=== PATIENT | male | born 1970 | race Caucasian/White ===

== ENCOUNTER 2021-12-11 13:10 | Emergency (ER) | payer MEDICAID, SELFPAY ==
--- NOTE | ~2021-12-11 | US_ITS ---
EXAMINATION: US VENOUS ULTRASOUND WITH DOPPLER LOWER EXTREMITY, RIGHT CLINICAL INFORMATION: Right leg pain and tingling COMPARISON: None TECHNIQUE: Ultrasound of the deep veins is performed from the hip to the calf with compression sonography and color and pulse Doppler assessment. Spectral analysis with color-flow imaging is performed. FINDINGS: There is normal venous compression and respiratory variation and augmented flow. The visualized common femoral vein, superficial femoral vein, profunda femoral vein, popliteal vein, and the trifurcation region shows no evidence of deep venous thrombosis. There is no significant popliteal fossa cyst. US/US venous duplex LE RT IMPRESSION: No DVT demonstrated in the right lower extremity.
--- NOTE | ~2021-12-11 | XR_ITS ---
EXAMINATION: XR TIBIA AND FIBULA, RIGHT CLINICAL INFORMATION: Hit lower leg. Pain. COMPARISON: Right knee radiographs 01/23/2016 TECHNIQUE: AP and lateral views of the right tibia and fibula were obtained. FINDINGS: No fracture or cortical disruption. Alignment at the knee and ankle maintained. The soft tissues are unremarkable. XR/XR tibia fibula RT 2V IMPRESSION: Normal right tibia and fibula.
[2021-12-11 13:24] VITALS: BP 105/79; PULSE 82; RESP 19; TEMP 36.6; O2SAT 100; BMI 29.9
--- NOTE | 2021-12-11 14:14 | ED_ITS ---
HPI - Extremity Injury (Lower) General Chief Complaint: Extremity Injury, Lower Stated Complaint: r leg inj Time Seen by Provider: 12/11/21 14:03 Source: patient Mode of arrival: ambulatory Limitations: no limitations History of Present Illness HPI Narrative: Patient presents to the emergency department for evaluation of right lower extremity pain. He reports 3 days ago that he struck his chin on to tile while attempting to get in to his hot tub. He had initial pain and swelling just below his knee which has improved some. Over the past couple of days he has noticed some mild redness along the medial calf with increased pain, swelling, and tingling. Pain is made worse with weight-bearing. Denies ever injuring this leg in the past. Denies any personal history of DVT/PE, cancer, anticoagulation usage, known coagulation disorders, recent immobilization/surgery/extended travel. He is a cigarette smoker. Related Data Previous Rx's Medication Instructions Recorded doxycycline hyclate 100 mg tablet 100 mg PO BID 7 Days #14 tab 12/11/21 Allergies Allergy/AdvReac Type Severity Reaction Status Date / Time Penicillins [PENICILLINS] Allergy Severe ANAPHYLAXIS Unverified 05/01/20 14:54 tomato [TOMATO] Allergy Severe ANAPHYLAXIS Unverified 05/01/20 14:54 penicillin V Allergy Unknown Verified 02/18/16 00:00 FRUIT Allergy Severe ANAPHYLAXIS Uncoded 05/01/20 14:54 Review of Systems Review of Systems: Constitutional: No weight loss, fever, chills, weakness or fatigue. Skin: No rash or itching. Cardiovascular: No chest pain, chest pressure or chest discomfort. No palpitations or pedal edema. Respiratory: No shortness of breath, cough or sputum production. Gastrointestinal: No nausea, vomiting or diarrhea. No abdominal pain Genitourinary: No burning micturition. No urinary frequency or incontinence. Musculoskeletal: Positive right lower extremity pain Psychiatric: No depression or anxiety. Yes all other systems are reviewed and are negative PMFSH Past Medical History Attestation statement: The following information was validated with the patient. Source: old records reviewed Medical History Anxiety Depression High cholesterol Social History Social History Advance Directives: No Advance Directives Information Provided: No Physical Exam Vital Signs: Vital Signs: Last Vital Signs Temp 98 F 12/11/21 13:24 Pulse 82 12/11/21 13:24 Resp 19 12/11/21 13:24 BP 105/79 12/11/21 13:24 Pulse Ox 100 12/11/21 13:24 BMI result Body Mass Index 29.9 Vital signs have been reviewed as normal and appeared to be correct. Blood pressure normal.? Heart rate normal.? Respiration rate normal. Temperature normal.? Oxygen saturation normal. Appearance: Alert.?Oriented to person, place and time. No acute distress.?Normal affect. Eyes: Pupils equal, round and reactive to light.? ENT: Pharynx normal.?? Neck: Normal inspection.? Neck supple.?? CVS: Heart sounds normal. Normal heart rate and rhythm.? Pulses normal.?? Respiratory: No respiratory distress.? Lung sounds clear to auscultation bilaterally?? Abdomen: Soft and non-tender. ? Skin: Skin warm and dry.? Normal skin color.? Extremities: Right lower extremity with firm palpable lump to anterior leg, just inferior to me. Right medial calf with mild erythema, appears to be streaking, no warmth, no palpable cord, has mild tenderness with palpation and non-pittin edema of the calf. No lower extremity edema.? No calf ttp? Neuro: Moves all extremities spontaneously. Sensation intact bilaterally. CN II- XII intact. No focal neuro deficits. Ambulates with normal steady gait. Course Course Course Narrative: Patient is a 51-year-old male with a past medical history of anxiety and hypercholesterolemia. Being evaluated for right lower extremity pain after an injury. Imaging studies obtained from triage include XR of the right tib-fib which reveals no acute fracture dislocation, and US duplex which reveals no DVT. Patient expressing that the pain he is currently seen see is consistent to a prior episode of cellulitis which she reports rapidly progressed over a few days requiring IV antibiotics. Discussed all findings with patient. Plan of care to treat at this time for potential early cellulitis, advise reasons return back to the emergency department, advised to follow-up with primary care provider within 1 week. All questions were answered and patient was discharged home in stable condition. MDM - Extremity Injury (Lower) Medical Records Attestation: I reviewed the patient's medical records. Imaging Data XR tib/fib: Radiologist's impression: FINDINGS: No fracture or cortical disruption. Alignment at the knee and ankle maintained. The soft tissues are unremarkable.? XR/XR tibia fibula RT 2V IMPRESSION: Normal right tibia and fibula. RLE US: Radiologist's impression: US/US venous duplex LE RT IMPRESSION: No DVT demonstrated in the right lower extremity. Discharge Plan Discharge Clinical Impression: Cellulitis Patient Disposition: Home, Self-Care Instructions: Cellulitis (ED) Additional Instructions: You have been given a new prescription for doxycycline, please take this course entirely as prescribed. Contact your primary care provider to schedule a follow-up visit within 1 week. Return to the emergency department any new or worsening symptoms or concerns Prescriptions: New doxycycline hyclate 100 mg tablet 100 mg PO BID 7 Days Qty: 14 0RF Interventions: ED Discharge Assessment Last Done: 12/11/21 15:33 Discharge Date/Time: 12/11/21 15:36
== END 2021-12-11 15:36 | disposition home or self-care (01) ==
PROVIDERS: Emergency Provider Internal Medicine; PCP Family Medicine
DX: L03.115 Cellulitis of right lower limb (principal); R60.0 Localized edema; Z79.899 Other long term (current) drug therapy
CPT/HCPCS: 73590; 93971; 99283; 99284

== ENCOUNTER 2022-10-06 10:55 | Emergency (ER) | payer MEDICARE, MEDICAID, SELFPAY ==
--- NOTE | ~2022-10-06 | MR_ITS ---
EXAMINATION: MR BRAIN WITHOUT CONTRAST CLINICAL INFORMATION: Vertigo and dizziness reported on head CT from 10/06/2022. COMPARISON: Head CT dated 10/06/2022. TECHNIQUE: Multiplanar, multisequence imaging of the brain was performed without contrast. FINDINGS: No diffusion abnormalities are identified to suggest an acute or subacute infarct. The ventricles are normal in size. No mass effect or midline shift is seen. No brain parenchymal signal abnormality is noted. No extra-axial fluid collections are seen. The brainstem and cerebellum are normal. The gradient refocused acquisition is normal. The craniovertebral junction, marrow signal, and midline structures are normal. The major intracranial flow voids at the level of the [place] are preserved. The dural venous sinus flow voids are maintained. The mastoid air cells are well aerated. Mild ethmoid sinus mucosal thickening noted. MR/MR head/brain wo con IMPRESSION: No acute intracranial process. Normal MRI of the brain.
--- NOTE | ~2022-10-06 | CT_ITS ---
EXAMINATION: CT HEAD WITHOUT CONTRAST CLINICAL INFORMATION: Dizziness and vertigo COMPARISON: None TECHNIQUE: Contiguous axial imaging was performed from the skull base to vertex without intravenous administration of contrast. This CT examination was performed using dose optimization techniques as appropriate, variously including the following: *Automated exposure control *Adjustment of mA and/or kV according to patient size (this includes techniques or standardized protocols for targeted exams where dose is matched to indication/reason for exam; i.e. extremities or head) *Use of iterative reconstruction technique DLP: 727 mGy-cm FINDINGS: No intra or extra-axial fluid collection or hemorrhage, mass or mass effect. Sulci normal. There are small punctate calcifications in the right basal ganglia. Calvarium is intact. CT/CT head/brain wo IV con IMPRESSION: No acute intracranial pathology.
--- NOTE | ~2022-10-06 | XR_ITS ---
EXAMINATION: XR CHEST CLINICAL INFORMATION: Dizziness COMPARISON: None TECHNIQUE: Frontal view of the chest was obtained. FINDINGS: No significant abnormality is noted involving the heart, lungs, mediastinum, bony thorax or soft tissues. XR/XR chest 1V IMPRESSION: Unremarkable examination.
[2022-10-06 11:09] VITALS: BP 141/87; PULSE 77; RESP 16; TEMP 36.8; O2SAT 98; BMI 26.4
--- NOTE | 2022-10-06 11:22 | PC.NURSE ---
52 y/o M pw dizziness since tuesday morning, initially resolved then returned and remained intermittent over past few days until today when symptoms became constant and worsened. pt c/o room spinning, Neuros intact, VSS. Md ambrosio made aware of patient, no new orders at this time. pt in gown, on monitor, awaiting MD franklin
--- OUTSIDE RECORDS SUMMARY | 2022-10-06 11:24 | XMS_ITS | Continuity of Care Document ---
:1970 Author Organization [facility] Address [address] [place] [address]- Care Team Providers Name Role Phone Cristy Owusu MD Primary Care Physician Encounter [facility] Date(s): 04/28/21 [facility] [address] [place] [id number] [place] Allergies, Adverse Reactions, Alerts Substance Reaction Severity Status penicillin Difficulty breathing Active Bee Stings DIFF BREATHING Active Fruit ALL FRUIT Active Difficulty breathing Immunizations Given and Recorded Vaccine Date Status Refusal Reason tetanus/diphtheria/pertussis, acel(Tdap) 12/15/15 Given influenza virus vaccine, inactivated1 06/07/14 Given influ virus vac, H1N1, inactive(oldterm)2 04/26/13 Given tetanus-diphtheria toxoids (Td)3 07/15/05 Given 1Result Comment: [06/07/2014] DECLINED FLU [id number] Note: DECLINES FLU SHOT3 Admin Note: per pt. Medications acetaminophen-oxyCODONE 325 mg-5 mg oral tablet 1, tablet, By Mouth, 3 times a day, Elbow pain M25.521 CONTROLLED SUB AGREEMENT MAPat checked fill on or after 05/12/2021, # 84 tablet, Refills 0, Tot. Refills 0, Maintenance, 05/05/21 9:25:00 EDT, Route to Pharmacy Electronically, [facility]... Start Date: 05/05/21 Stop Date: 06/02/21 Status: Orderedatorvastatin 40 mg oral tablet 1 tablet = 40 mg, By Mouth, Daily, # 30 tablet, 5 Refills, Maintenance, 04/27/21 15:07:00 EDT, Tablet, [facility], 185, cm, 03/18/21 7:59:00 EDT, Height, 93, kg, 07/19/19 8:00:00 EST, Dry Weight Start Date: 04/27/21 Status: Orderedcitalopram 20 mg oral tablet 20 mg, 1, tablet, By Mouth, Daily, # 30 tablet, Refills 5, Tot. Refills 5, Maintenance, 03/26/21 11:08:00 EDT, Route to Pharmacy Electronically, [facility] # [facility], 185, cm, 03/18/21 7:59:00 EDT, Height, 93, kg, 07/19/19 8:00:00 EST, Dry Weight Start Date: 03/26/21 Stop Date: 09/22/21 Status: Orderedibuprofen 600 mg oral tablet 600 mg, 1, tablet, By Mouth, 3 times a day with meals, PRN, # 90 tablet, Refills 5, Tot. Refills 5, Acute 03/17/22 10:10:00 EDT, Pain , Mild, 09/18/20 10:10:00 EST, Route to Pharmacy Electronically, [facility] # [facility], Partial fill upon patient reque... Start Date: 09/18/20 Stop Date: 03/17/22 Status: Orderedmeclizine 12.5 mg oral tablet 1 tablet = 12.5 mg, By Mouth, 3 times a day, PRN for dizziness, # 60 tablet, 0 Refills, Acute 06/18/21 8:31:00 EDT, 03/18/21 8:31:00 EDT, Tablet, [facility] # [facility], Partial fill upon patient request if the prescription is for a schedule II opioid Start Date: 03/18/21 Stop Date: 06/18/21 Status: OrderedPatient's Own Meds marijuana, Maintenance, 04/12/19 9:03:06 EDT Start Date: 04/12/19 Status: Ordered Problem List Condition Effective Dates Status Health Status Informant Bilateral inguinal hernia(Confirmed) Active Chronic depression(Confirmed) Active Cyst - pilonidal(Confirmed) Active Opiate analgesic use agreement 09/18/20 Active exists(Confirmed) Elbow pain, right(Confirmed) Active Hypercholesteremia(Confirmed) Active Insomnia, Unspecified(Confirmed) Active Lateral epicondylitis(Confirmed) Active Depression, major(Confirmed) Active Tobacco abuse(Confirmed) Active Hernia, umbilical(Confirmed) Active Social History Social History Type Response Smoking Status Former smoker, quit more alonso n 30 days ago; Other: 08/16/19 quit smoking; entered on: 01/18/20 Sex Medical Equipment Implanted Date:08/16/19 Target Site:Groin Left Description Quantity MRI Company Model LEFT GROIN 1 VENTRALIGHT Unknown ASHVIN: No Information Assigning Authority: FDA Implanted Date:08/16/19 Target Site:Groin Right Description Quantity MRI Company Model MESH VENTRALIGHT ECHO CIR 6 - BARD ([id number]) 1 Bard Unknown ASHVIN: No Information Assigning Authority: FDA Implanted Date:08/16/19 Target Site:[facility] Description Quantity MRI Company Model MESH VENTRALIGHT ECHO CIR 6 - BARD ([id number]) 1 Bard Unknown ASHVIN: No Information Assigning Authority: FDA
--- OUTSIDE RECORDS SUMMARY | 2022-10-06 11:24 | XMS_ITS | Continuity of Care Document ---
:1970 Author Organization [facility] Address [address] [place] [address]- Care Team Providers Name Role Phone Cristy Owusu MD Primary Care Physician Encounter [facility] Date(s): 03/31/20 - 04/07/20 [facility] [address] [place] [phone]- Attending Physician: Cristy Owusu MD Allergies, Adverse Reactions, Alerts Substance Reaction Severity Status penicillin Difficulty breathing Active Bee Stings DIFF BREATHING Active Fruit ALL FRUIT Active Difficulty breathing Immunizations Given and Recorded Vaccine Date Status Refusal Reason tetanus/diphtheria/pertussis, acel(Tdap) 12/15/15 Given influenza virus vaccine, inactivated1 06/07/14 Given influ virus vac, H1N1, inactive(oldterm)2 04/26/13 Given tetanus-diphtheria toxoids (Td)3 07/15/05 Given 1Result Comment: [06/07/2014] DECLINED FLU [id number] Note: DECLINES FLU SHOT3 Admin Note: per pt. Medications acetaminophen-oxyCODONE 325 mg-5 mg oral tablet 1, tablet, By Mouth, 3 times a day, Elbow pain M25.521 CONTROLLED SUB AGREEMENT MAPat checked fill on or after 03/26/2020, # 84 tablet, Refills 0, Tot. Refills 0, Maintenance, 03/25/20 21:47:00 EDT, Route to Pharmacy Electronically, [facility]... Start Date: 03/25/20 Stop Date: 04/22/20 Status: Orderedatorvastatin 40 mg oral tablet 1 tablet = 40 mg, By Mouth, Daily, # 30 tablet, 5 Refills, Maintenance, 03/27/20 11:50:00 EDT, Tablet, [facility] # [facility], 185, cm, 01/18/20 7:59:00 EDT, Height, 93, kg, 07/19/19 8:00:00 EST, Dry Weight Start Date: 03/27/20 Status: Orderedcitalopram 20 mg oral tablet 20 mg, 1, tablet, By Mouth, Daily, # 30 tablet, Refills 5, Tot. Refills 5, Maintenance, 03/31/20 11:08:00 EDT, Route to Pharmacy Electronically, [facility] # [facility], 185, cm, 03/31/20 10:50:00 EDT, Height, 93, kg, 07/19/19 8:00:00 EST, Dry Weight Start Date: 03/31/20 Stop Date: 09/27/20 Status: OrderedColace sodium 100 mg oral capsule 100 mg, 1, capsule, By Mouth, 2 times a day, PRN, with plenty of water, # 20 capsule, Refills 1, Tot. Refills 1, Maintenance, for constipation, 08/16/19 11:53:00 EST, Print Requisition Start Date: 08/16/19 Status: Orderedibuprofen 600 mg oral tablet 600 mg, 1, tablet, By Mouth, 3 times a day with meals, PRN, Refills 0, Maintenance, Pain , Mild, 08/16/19 11:44:00 EST Start Date: 08/16/19 Status: Orderedibuprofen 600 mg oral tablet 600 mg, 1, tablet, By Mouth, 4 times a day, # 120 tablet, Refills 1, Tot. Refills 1, Acute 10/01/20 11:58:00 EST, 08/31/19 11:57:00 EST, Route to Pharmacy Electronically, [facility] # 50, 185, cm, 08/31/19 11:41:00 EST, Height, 93, kg, 07/19/19 8:... Start Date: 08/31/19 Stop Date: 10/01/20 Status: OrderedPatient's Own Meds marijuana, Maintenance, 04/12/19 9:03:06 EDT Start Date: 04/12/19 Status: Ordered Problem List Condition Effective Dates Status Health Status Informant Bilateral inguinal hernia(Confirmed) Active Chronic depression(Confirmed) Active Cyst - pilonidal(Confirmed) Active Opiate analgesic use agreement 08/23/19 Active exists(Confirmed) Elbow pain, right(Confirmed) Active Hypercholesteremia(Confirmed) Active Insomnia, Unspecified(Confirmed) Active Lateral epicondylitis(Confirmed) Active Depression, major(Confirmed) Active Tobacco abuse(Confirmed) Active Hernia, umbilical(Confirmed) Active Vital Signs Most recent to oldest [Reference Range]: 1 Height 185 cm (03/31/20 10:50 AM) Weight 91.2 kg (03/31/20 10:50 AM) Oxygen Saturation [94-100 %] 97 % (03/31/20 10:50 AM) Pulse Rate [55-90 bpm] 67 bpm (03/31/20 10:50 AM) Body Mass Index [18.5-24.99] 26.65 *H* (03/31/20 10:50 AM) Blood Pressure [90-138/55-84 mm Hg] 120/72 mm Hg (03/31/20 10:50 AM) Temperature [96.8-100.4 DegF] 97.6 DegF (03/31/20 10:50 AM) Blood pressure sites Arm, left (03/31/20 10:50 AM) Temperature Route Temporal (03/31/20 10:50 AM) Social History Social History Type Response Smoking [...] MESH VENTRALIGHT ECHO CIR 6 - BARD ([id number]) 1 Bard Unknown ASHVIN: No Information Assigning Authority: FDA Implanted Date:08/16/19 Target Site:[facility] Description Quantity MRI Company Model MESH VENTRALIGHT ECHO CIR 6 - BARD ([id number]) 1 Bard Unknown ASHVIN: No Information Assigning Authority: FDA
--- OUTSIDE RECORDS SUMMARY | 2022-10-06 11:24 | XMS_ITS | Continuity of Care Document ---
:1970 Author Organization [facility] Address [address] [place] [address]- Care Team Providers Name Role Phone Cristy Owusu MD Primary Care Physician Encounter [facility] Date(s): 09/18/20 - 09/25/20 [facility] [address] [place] [id number]- Attending Physician: Cristy Owusu MD Allergies, Adverse Reactions, Alerts Substance Reaction Severity Status penicillin Difficulty breathing Active Fruit ALL FRUIT Active Difficulty breathing Bee Stings DIFF BREATHING Active Immunizations Given and Recorded Vaccine Date Status Refusal Reason tetanus/diphtheria/pertussis, acel(Tdap) 12/15/15 Given influenza virus vaccine, inactivated1 06/07/14 Given influ virus vac, H1N1, inactive(oldterm)2 04/26/13 Given tetanus-diphtheria toxoids (Td)3 07/15/05 Given 1Result Comment: [06/07/2014] DECLINED FLU [id number] Note: DECLINES FLU SHOT3 Admin Note: per pt. Medications acetaminophen-oxyCODONE 325 mg-5 mg oral tablet 1, tablet, By Mouth, 3 times a day, Elbow pain M25.521 CONTROLLED SUB AGREEMENT MAPat checked fill on or after 09/07/2020, # 84 tablet, Refills 0, Tot. Refills 0, Maintenance, 09/02/20 16:21:00 EST, Route to Pharmacy Electron[facility], [facility]... Start Date: 09/02/20 Stop Date: 09/30/20 Status: Orderedatorvastatin 40 mg oral tablet 1 tablet = 40 mg, By Mouth, Daily, # 30 tablet, 5 Refills, Maintenance, 09/18/20 10:08:00 EST, Tablet, [facility] # [facility], 185, cm, 09/18/20 9:54:00 EST, Height, 93, kg, 07/19/19 8:00:00 EST, Dry Weight Start Date: 09/18/20 Status: Orderedcitalopram 20 mg oral tablet 20 mg, 1, tablet, By Mouth, Daily, for 30 days, # 30 tablet, Refills 5, Tot. Refills 5, Hard Stop 09/27/20 11:08:00 EST, 03/31/20 11:08:00 EDT, Route to Pharmacy Electronically, [facility] # [facility], 185, cm, 03/31/20 10:50:00 EDT, Height, 93, kg, 12/0... Start Date: 03/31/20 Stop Date: 09/27/20 Status: Orderedcitalopram 20 mg oral tablet 20 mg, 1, tablet, By Mouth, Daily, # 30 tablet, Refills 5, Tot. Refills 5, Maintenance, 09/27/20 11:08:00 EST, Route to Pharmacy Electronically, [facility] # [facility], 185, cm, 09/18/20 9:54:00 EST, Height, 93, kg, 07/19/19 8:00:00 EST, Dry Weight Start Date: 09/27/20 Stop Date: 03/26/21 Status: Orderedibuprofen 600 mg oral tablet 600 mg, 1, tablet, By Mouth, 4 times a day, # 120 tablet, Refills 1, Tot. Refills 1, Acute 10/01/20 11:58:00 EST, 08/31/19 11:57:00 EST, Route to Pharmacy Electronically, [facility] # [facility], 185, cm, 08/31/19 11:41:00 EST, Height, 93, kg, 07/19/19 8:... Start Date: 08/31/19 Stop Date: 10/01/20 Status: Orderedibuprofen 600 mg oral tablet 600 mg, 1, tablet, By Mouth, 3 times a day with meals, PRN, # 90 tablet, Refills 5, Tot. Refills 5, Acute 03/17/22 10:10:00 EDT, Pain , Mild, 09/18/20 10:10:00 EST, Route to Pharmacy Electronically, [facility] # 50, Partial fill upon patient reque... Start Date: 09/18/20 Stop Date: 03/17/22 Status: OrderedPatient's Own Meds marijuana, Maintenance, 04/12/19 [...] oldest [Reference Range]: 1 Height 185 cm (09/18/20 9:54 AM) Weight 94.4 kg (09/18/20 9:54 AM) Oxygen Saturation [94-100 %] 98 % (09/18/20 9:54 AM) Pulse Rate [55-90 bpm] 71 bpm (09/18/20 9:54 AM) Body Mass Index [18.5-24.99] 27.58 *H* (09/18/20 9:54 AM) Blood Pressure [90-138/55-84 mm Hg] 128/84 mm Hg (09/18/20 9:54 AM) Blood pressure sites Arm, left (09/18/20 9:54 AM) Weight Obtained Via Standing scale (09/18/20 9:54 AM) Social History Social History Type Response [...] MESH VENTRALIGHT ECHO CIR 6 - BARD ([id number]) 1 Bard Unknown ASHVIN: No Information Assigning Authority: FDA Implanted Date:08/16/19 Target Site:[facility] Description Quantity MRI Company Model MESH VENTRALIGHT ECHO CIR 6 - BARD ([id number]) 1 Bard Unknown ASHVIN: No Information Assigning Authority: FDA
--- OUTSIDE RECORDS SUMMARY | 2022-10-06 11:24 | XMS_ITS | Continuity of Care Document ---
:1970 Author Organization [facility] Address [address] [place] [address]- Care Team Providers Name Role Phone Cristy Owusu MD Primary Care Physician Encounter [facility] Date(s): 01/18/20 - 02/17/20 [facility] [address] [place] [address]- Attending Physician: Gissell Perry Admitting Physician: AdmtrGissell Referring Physician: Admtr, ArAddy Allergies, Adverse Reactions, Alerts Substance Reaction Severity Status penicillin Difficulty breathing Active Bee Stings DIFF BREATHING Active Fruit ALL FRUIT Active Difficulty breathing Immunizations Given and Recorded Vaccine Date Status Refusal Reason tetanus/diphtheria/pertussis, acel(Tdap) 12/15/15 Given influenza virus vaccine, inactivated1 06/07/14 Given influ virus vac, H1N1, inactive(oldterm)2 04/26/13 Given tetanus-diphtheria toxoids (Td)3 07/15/05 Given 1Result Comment: [06/07/2014] DECLINED FLU [id number] Note: DECLINES FLU SHOT3 Admin Note: per pt. Medications acetaminophen-oxyCODONE 325 mg-5 mg oral tablet 1, tablet, By Mouth, 3 times a day, Elbow pain M25.521 CONTROLLED SUB AGREEMENT MAPat checked fill on or after 02/27/2020, # 84 tablet, Refills 0, Tot. Refills 0, Maintenance, 02/06/20 12:30:00 EDT, Route to Pharmacy Electronically, [facility]... Start Date: 02/06/20 Stop Date: 03/05/20 Status: Orderedacetaminophen-oxyCODONE 325 mg-5 mg oral tablet 1, tablet, By Mouth, 3 times a day, Elbow pain M25.521 CONTROLLED SUB AGREEMENT MAPat checked fill on or after 01/30/20 for 28 days, # 84 tablet, Refills 0, Tot. Refills 0, Hard Stop, 02/22/20 11:22:00 EDT, 01/25/20 11:22:00 EDT, Do Not Route, Tab... Start Date: 01/25/20 Stop Date: 02/22/20 Status: Orderedacetaminophen-oxyCODONE 325 mg-5 mg oral tablet 1, tablet, By Mouth, 3 times a day, Elbow pain M25.521 CONTROLLED SUB AGREEMENT MAPat checked fill on or after 01/30/20 for 28 days, # 84 tablet, Refills 0, Tot. Refills 0, Hard Stop, 02/22/20 15:47:00 EDT, 01/25/20 15:47:00 EDT, Route to Pharmacy... Start Date: 01/25/20 Stop Date: 02/22/20 Status: Orderedatorvastatin 40 mg oral tablet 1 tablet = 40 mg, By Mouth, Daily, # 30 tablet, 5 Refills, Maintenance, 08/06/19 13:25:00 EST, Tablet, [facility], 185, cm, 07/19/19 8:00:00 EST, Height, 93, kg, 07/19/19 8:00:00 EST, Dry Weight Start Date: 08/06/19 Status: OrderedColace sodium 100 mg oral capsule [...] 08/31/19 11:57:00 EST, Route to Pharmacy Electronically, [facility], 185, cm, 08/31/19 11:41:00 EST, Height, 93, kg, 07/19/19 8:... Start Date: 08/31/19 Stop Date: 10/01/20 Status: OrderedPatient's Own Meds marijuana, Maintenance, 04/12/19 9:03:06 EDT Start Date: 04/12/19 Status: OrderedPriLOSEC OTC 20 mg oral delayed release tablet 1 tablet = 20 mg, By Mouth, Daily, # 90 tablet, 1 Refills, Maintenance, 08/31/19 11:56:00 EST, CR Tablet, [facility], 185, cm, 08/31/19 11:41:00 EST, Height, 93, kg, 07/19/19 8:00:00 EST, Dry Weight Start Date: 08/31/19 Status: Ordered Problem List Condition Effective Dates Status Health Status Informant Bilateral inguinal hernia(Confirmed) Active Chronic depression(Confirmed) Active Cyst - pilonidal(Confirmed) Active Opiate analgesic use agreement 08/23/19 Active exists(Confirmed) Elbow pain, right(Confirmed) Active Hypercholesteremia(Confirmed) Active Insomnia, Unspecified(Confirmed) Active Lateral epicondylitis(Confirmed) Active Tobacco abuse(Confirmed) Active Hernia, umbilical(Confirmed) Active [...] MESH VENTRALIGHT ECHO CIR 6 - BARD ([id number]) 1 Bard Unknown ASHVIN: No Information Assigning Authority: FDA Implanted Date:08/16/19 Target Site:[facility] Description Quantity MRI Company Model MESH VENTRALIGHT ECHO CIR 6 - BARD ([id number]) 1 Bard Unknown ASHVIN: No Information Assigning Authority: FDA
--- OUTSIDE RECORDS SUMMARY | 2022-10-06 11:24 | XMS_ITS | Continuity of Care Document ---
:1970 Author Organization [facility] Address [address] [phone]- Care Team Providers Name Role Phone Cristy Owusu MD Primary Care Physician Encounter [facility] Date(s): 08/17/21 - 09/16/21 [facility] [address] [place] [address]- [place] Allergies, Adverse Reactions, Alerts Substance Reaction Severity Status penicillin Difficulty breathing Active Bee Stings DIFF BREATHING Active Fruit ALL FRUIT Active Difficulty breathing Immunizations Given and Recorded Vaccine Date Status Refusal Reason tetanus/diphtheria/pertussis, acel(Tdap) 12/15/15 Given influenza virus vaccine, inactivated1 06/07/14 Given influ virus vac, H1N1, inactive(oldterm)2 04/26/13 Given tetanus-diphtheria toxoids (Td)3 07/15/05 Given 1Result Comment: [06/07/2014] DECLINED FLU [id number] Note: DECLINES FLU SHOT3 Admin Note: per pt. Medications acetaminophen-oxyCODONE 325 mg-5 mg oral tablet 1, tablet, By Mouth, 3 times a day, Elbow pain M25.521 CONTROLLED SUB AGREEMENT MAPat checked fill on or after 08/31/21, # 84 tablet, Refills 0, Tot. Refills 0, Maintenance, 08/26/21 10:20:00 EST, Routeto Pharmacy Electronically, [facility] #... Start Date: 08/26/21 Stop Date: 09/23/21 Status: Orderedatorvastatin 40 mg oral tablet 1 tablet = 40 mg, By Mouth, Daily, # 30 tablet, 5 Refills, Maintenance, 04/27/21 15:07:00 EDT, Tablet, [facility] # 50, 185, cm, 03/18/21 7:59:00 EDT, Height, 93, kg, 07/19/19 8:00:00 EST, Dry Weight Start Date: 04/27/21 Status: Orderedcitalopram 20 mg oral tablet 20 mg, 1, tablet, By Mouth, Daily, # 30 tablet, Refills 5, Tot. Refills 5, Maintenance, 03/26/21 11:08:00 EDT, Route to Pharmacy Electronically, [facility] # [facility], 185, cm, 03/18/21 [...] 09/18/20 10:10:00 EST, Route to Pharmacy Electronically, [facility] # [facility], Partial fill upon patient [...] MESH VENTRALIGHT ECHO CIR 6 - BARD ([id number]) 1 Bard Unknown ASHVIN: No Information Assigning Authority: FDA Implanted Date:08/16/19 Target Site:[facility] Description Quantity MRI Company Model MESH VENTRALIGHT ECHO CIR 6 - BARD ([id number]) 1 Bard Unknown ASHVIN: No Information Assigning Authority: FDA
--- OUTSIDE RECORDS SUMMARY | 2022-10-06 11:24 | XMS_ITS | Continuity of Care Document ---
:1970 Author Organization [facility] Address [address] [place] [address]- Care Team Providers Name Role Phone Cristy Owusu MD Primary Care Physician Encounter [facility] Date(s): 03/18/21 - 03/25/21 [facility] [address] [place] [address]- Attending Physician: Cristy Owusu MD Allergies, Adverse [...] 07/15/05 Given 1Result Comment: [06/07/2014] DECLINED FLU [id number] Note: DECLINES FLU SHOT3 Admin Note: per pt. Medications acetaminophen-oxyCODONE 325 mg-5 mg oral tablet 1, tablet, By Mouth, 3 times a day, Elbow pain M25.521 CONTROLLED SUB AGREEMENT MAPat checked fill on 03/19/2021 fill on or after 02/20/2021, # 84 tablet, Refills 0, Tot. Refills 0, Maintenance, 03/17/21 21:54:00 EDT, Route to Pharmacy Electronically... Start Date: 03/17/21 Stop Date: 04/14/21 Status: Orderedatorvastatin 40 mg oral tablet 1 [...] 03/26/21 11:08:00 EDT, Route to Pharmacy Electronically, [facility] # [facility], 185, cm, 03/18/21 [...] 09/18/20 10:10:00 EST, Route to Pharmacy Electronically, [facility] # 50, Partial fill upon patient reque... Start Date: 09/18/20 Stop Date: 03/17/22 Status: Orderedmeclizine 12.5 mg oral tablet 1 tablet = 12.5 mg, By Mouth, 3 times a day, PRN for dizziness, # 60 tablet, 0 Refills, Acute 06/18/21 8:31:00 EDT, 03/18/21 8:31:00 EDT, Tablet, [facility] # 50, Partial fill upon [...] oldest [Reference Range]: 1 Height 185 cm (03/18/21 7:59 AM) Weight 92.1 kg (03/18/21 7:59 AM) Oxygen Saturation [94-100 %] 98 % (03/18/21 7:59 AM) Pulse Rate [55-90 bpm] 61 bpm (03/18/21 7:59 AM) Body Mass Index [18.5-24.99] 26.91 *H* (03/18/21 7:59 AM) Blood Pressure [90-138/55-84 mm Hg] 116/68 mm Hg (03/18/21 7:59 AM) Blood pressure sites Arm, left (03/18/21 7:59 AM) Weight Obtained Via Standing scale (03/18/21 7:59 AM) Social History Social History Type Response [...] MESH VENTRALIGHT ECHO CIR 6 - BARD ([id number]) 1 Bard Unknown ASHVIN: No Information Assigning Authority: FDA Implanted Date:08/16/19 Target Site:[facility] Description Quantity MRI Company Model MESH VENTRALIGHT ECHO CIR 6 - BARD ([id number]) 1 Bard Unknown ASHVIN: No Information Assigning Authority: FDA
--- OUTSIDE RECORDS SUMMARY | 2022-10-06 11:24 | XMS_ITS | Continuity of Care Document ---
:1970 Author Organization [facility] Address [address] [place] [address]- Care Team Providers Name Role Phone Cristy Owusu MD Primary Care Physician Encounter [facility] Date(s): 04/15/21 - 05/15/[address] [facility] [address] [place] [address] [place] Allergies, Adverse Reactions, Alerts Substance Reaction Severity Status penicillin Difficulty breathing Active Bee Stings DIFF BREATHING Active Fruit ALL FRUIT Active Difficulty breathing Immunizations Given and Recorded Vaccine Date Status Refusal Reason tetanus/diphtheria/pertussis, acel(Tdap) 12/15/15 Given influenza virus vaccine, inactivated1 06/07/14 Given influ virus vac, H1N1, inactive(oldterm)2 04/26/13 Given tetanus-diphtheria toxoids (Td)3 07/15/05 Given 1Result Comment: [06/07/2014] DECLINED FLU [id number] Note: DECLINES FLU SHOT3 Admin Note: per [...] 5 Refills, Maintenance, 04/27/21 15:07:00 EDT, Tablet, [facility] # [facility], 185, cm, 03/18/21 7:59:00 EDT, Height, 93, kg, 07/19/19 8:00:00 EST, Dry Weight Start Date: 04/27/21 Status: Orderedcitalopram 20 mg oral tablet 20 mg, 1, tablet, By Mouth, Daily, # 30 tablet, Refills 5, Tot. Refills 5, Maintenance, 03/26/21 11:08:00 EDT, Route to Pharmacy Electronically, [facility] # [facility], 185, cm, 03/18/21 [...] 09/18/20 10:10:00 EST, Route to Pharmacy Electronically, [facility] # [facility], Partial fill upon patient reque... Start Date: 09/18/20 Stop Date: 03/17/22 Status: Orderedmeclizine 12.5 mg oral tablet 1 tablet = 12.5 mg, By Mouth, 3 times a day, PRN for dizziness, # 60 tablet, 0 Refills, Acute 06/18/21 8:31:00 EDT, 03/18/21 8:31:00 EDT, Tablet, [facility] # 50, Partial fill upon [...] MESH VENTRALIGHT ECHO CIR 6 - BARD ([id number]) 1 Bard Unknown ASHVIN: No Information Assigning Authority: FDA Implanted Date:08/16/19 Target Site:[facility] Description Quantity MRI Company Model MESH VENTRALIGHT ECHO CIR 6 - BARD ([id number]) 1 Bard Unknown ASHVIN: No Information Assigning Authority: FDA
--- OUTSIDE RECORDS SUMMARY | 2022-10-06 11:24 | XMS_ITS | Continuity of Care Document ---
:1970 Author Organization [facility] Address [address] [place] [address]- Care Team Providers Name Role Phone Francoise MACHADO, Cristy Reynolds Primary Care Physician Encounter [facility] Date(s): 08/16/19 - 08/16/[address] [address]- [facility] Discharge Disposition: A-D/C Home Attending Physician: Frederic Marcelo MD Admitting Physician: Fredeirc Marcelo MD Referring Physician: Frederic Marcelo MD Allergies, Adverse Reactions, Alerts Substance Reaction Severity Status penicillin Difficulty breathing Active Bee Stings DIFF BREATHING Active Fruit ALL FRUIT Active Difficulty breathing Immunizations Given and Recorded Vaccine Date Status Refusal Reason tetanus/diphtheria/pertussis, acel(Tdap) 12/15/15 Given influenza virus vaccine, inactivated1 06/07/14 Given influ virus vac, H1N1, inactive(oldterm)2 04/26/13 Given tetanus-diphtheria toxoids (Td)3 07/15/05 Given 1Result Comment: [06/07/2014] DECLINED FLU [id number] Note: DECLINES FLU SHOT3 Admin Note: per pt. Medications atorvastatin 40 mg oral tablet 1 tablet = [...] 08/16/19 11:44:00 EST Start Date: 08/16/19 Status: OrderedPatient's Own Meds marijuana, Maintenance, 04/12/19 9:03:06 EDT Start Date: 04/12/19 Status: OrderedPercocet-5/325 325 mg-5 mg oral tablet 1, tablet, By Mouth, Every 4 hours, PRN, # 12 tablet, Refills 0, Tot. Refills 0, Maintenance, as needed for pain, 08/16/19 11:52:00 EST, Print Requisition, Tablet, Partial fill upon patient request Start Date: 08/16/19 Status: OrderedPercocet-5/325 325 mg-5 mg oral tablet 1, tablet, By Mouth, 3 times a day, Elbow pain M25.521 MassPat checked DO NOT REFILL UNTIL 08/15/2019,# 84 tablet, Refills 0, Tot. Refills 0, Maintenance, 08/01/19 14:01:00 EST, Route to Pharmacy Electronically, [facility] # [facility] 185, cm, 07/19/19... Start Date: 08/01/19 Stop Date: 08/29/19 Status: Ordered Problem List Condition Effective Dates Status Health Status Informant Bilateral inguinal hernia(Confirmed) Active Chronic depression(Confirmed) Active Cyst - pilonidal(Confirmed) Active Opiate analgesic use agreement 06/26/18 Active exists(Confirmed) Elbow pain, right(Confirmed) Active Hypercholesteremia(Confirmed) Active Insomnia, Unspecified(Confirmed) Active Tobacco abuse(Confirmed) Active Hernia, umbilical(Confirmed) Active Vital Signs Most recent to oldest 1 2 3 [Reference Range]: Oxygen Saturation [94-100 %] 99 % 100 % 98 % (08/16/19 1:45 PM) (08/16/19 1:15 PM) (08/16/19 1:00 P M) Pulse Rate [55-90 bpm] 60 bpm (08/16/19 8:03 AM) Blood Pressure [90-138/55-84 mm 124/84 mm Hg 130/71 mm Hg 129/77 mm Hg Hg] (08/16/19 1:15 PM) (08/16/19 1:00 PM) (08/16/19 12:45 PM) Respiratory Rate [16-30 br/min] 14 br/min 14 br/min 8 br/min *L* *L* *L* (08/16/19 1:15 PM) (08/16/19 1:00 PM) (08/16/19 12:45 PM) Temperature [96.8-100.4 DegF] 98.3 DegF 97.3 DegF 98 .1 DegF (08/16/19 1:15 PM) (08/16/19 11:45 AM) (08/16/19 8:03 AM) Liters per Minute 2 L/min 2 L/min 5 L/min (08/16/19 12:45 PM) (08/16/19 12:30 PM) (08/16/19 12:1 5 PM) Mode of Delivery (Oxygen) Room air Room air Nasal cannula (08/16/19 1:45 PM) (08/16/19 1:00 PM) (08/16/19 12:45 PM) Blood pressure sites Arm, right (08/16/19 8:03 AM) Temperature Route Temporal Temporal Temporal (08/16/19 1:15 PM) (08/16/19 11:45 AM) (08/16/19 8:03 AM) Social History Social History Type Response Smoking Status Former smoker, quit more alonso n 30 days ago entered on: 07/10/18 Sex Medical Equipment Implanted Date:08/16/19 Target Site:Groin Left Description Quantity MRI Company Model LEFT GROIN 1 VENTRALIGHT Unknown ASHVIN: No Information Assigning Authority: FDA Implanted Date:08/16/19 Target Site:Groin Right Description Quantity MRI Company Model MESH VENTRALIGHT ECHO CIR 6 - BARD ([id number]) 1 Bard Unknown ASHVIN: No Information Assigning Authority: FDA Implanted Date:08/16/19 Target Site:[facility] Description Quantity MRI Company Model MESH VENTRALIGHT ECHO CIR 6 - BARD ([id number]) 1 Bard Unknown ASHVIN: No Information Assigning Authority: FDA
--- OUTSIDE RECORDS SUMMARY | 2022-10-06 11:24 | XMS_ITS | Continuity of Care Document ---
:1970 Author Organization [facility] Address [address] [place] [address]- Care Team Providers Name Role Phone Cristy Owusu MD Primary Care Physician [place] [facility] [place] 03/17/20 - 05/20/[address] [address]- [facility] Discharge Disposition: A-D/C Home Attending Physician: Mary Ann Lee Admitting Physician: Mary Ann Lee Referring Physician: Mary Ann Lee Allergies, Adverse Reactions, Alerts Substance Reaction Severity Status penicillin Difficulty breathing Active Fruit ALL FRUIT Active Difficulty breathing Bee Stings DIFF BREATHING Active Immunizations Given and Recorded Vaccine Date Status Refusal Reason tetanus/diphtheria/pertussis, acel(Tdap) 12/15/15 Given influenza virus vaccine, inactivated1 06/07/14 Given influ virus vac, H1N1, inactive(oldterm)2 04/26/13 Given tetanus-diphtheria toxoids (Td)3 07/15/05 Given 1Result Comment: [06/07/2014] DECLINED FLU [id number] Note: DECLINES FLU SHOT3 Admin Note: per pt. Medications acetaminophen-oxyCODONE 325 mg-5 mg oral tablet 1, tablet, By Mouth, 3 times a day, Elbow pain M25.521 CONTROLLED SUB AGREEMENT MAPat checked fill on or after 04/23/2020, # 84 tablet, Refills 0, Tot. Refills 0, Maintenance, 04/22/20 13:22:00 EDT, Route to Pharmacy Electronically, [facility] #... Start Date: 04/22/20 Stop Date: 05/20/20 Status: Orderedatorvastatin 40 mg oral tablet 1 tablet = 40 mg, By Mouth, Daily, # 30 tablet, 5 Refills, Maintenance, 03/27/20 11:50:00 EDT, Tablet, [facility] # [facility], 185, cm, 06/05/20 7:59:00 EDT, Height, 93, kg, 07/19/19 8:00:00 EST, Dry Weight Start Date: 03/27/20 Status: Orderedcitalopram 20 mg oral tablet 20 mg, 1, tablet, By Mouth, Daily, # 30 tablet, Refills 5, Tot. Refills 5, Maintenance, 03/31/20 11:08:00 EDT, Route to Pharmacy Electronically, [facility] # [facility], 185, cm, 03/31/20 10:50:00 [...] 08/31/19 11:57:00 EST, Route to Pharmacy Electronically, [facility] # [facility], 185, cm, 08/31/19 11:41:00 [...] MESH VENTRALIGHT ECHO CIR 6 - BARD ([id number]) 1 Bard Unknown ASHVIN: No Information Assigning Authority: FDA Implanted Date:08/16/19 Target Site:[facility] Description Quantity MRI Company Model MESH VENTRALIGHT ECHO CIR 6 - BARD ([id number]) 1 Bard Unknown ASHVIN: No Information Assigning Authority: FDA
--- OUTSIDE RECORDS SUMMARY | 2022-10-06 11:24 | XMS_ITS | Continuity of Care Document ---
:1970 Author Organization [email or web address] Address [address] [place] [address]- Care Team Providers Name Role Phone Cristy Owusu MD Primary Care Physician Encounter [facility] Date(s): 09/18/21 - 09/25/21 [facility] [address] [place] [address]- Attending Physician: Cristy Owusu MD Allergies, Adverse [...] 07/15/05 Given 1Result Comment: [06/07/2014] DECLINED FLU [id number] Note: DECLINES FLU SHOT3 Admin Note: per pt. Medications acetaminophen-oxyCODONE 325 mg-5 mg oral tablet 1, tablet, By Mouth, 3 times a day, Elbow pain M25.521 CONTROLLED SUB AGREEMENT MAPat checked fill on or after 09/28/21, # 84 tablet, Refills 0, Tot. Refills 0, Maintenance, 09/23/21 11:28:00 EST, Routeto Pharmacy Electronically, [facility] #... Start Date: 09/23/21 Stop Date: 10/21/21 Status: Orderedatorvastatin 40 mg oral tablet 1 tablet = 40 mg, By Mouth, Daily, # 90 tablet, 3 Refills, Maintenance, 09/18/21 8:06:00 EST, Tablet, [facility] # [facility], 185, cm, 09/18/21 7:42:00 EST, Height Start Date: 09/18/21 Status: Orderedcitalopram 20 mg oral tablet 20 mg, 1, tablet, By Mouth, Daily, # 30 tablet, Refills 5, Tot. Refills 5, Maintenance, 09/22/21 11:08:00 EST, Route to Pharmacy Electronically, [facility] # [facility], 185, cm, 09/18/21 7:42:00 EST, Height Start Date: 09/22/21 Stop Date: 03/21/22 Status: Orderedibuprofen 600 mg oral tablet 600 mg, 1, tablet, By Mouth, 3 times a day with meals, PRN, # 90 tablet, Refills 5, Tot. Refills 5, Maintenance, Pain , Mild, 03/17/22 10:10:00 EDT, Route to Pharmacy Electronically, [facility] # [facility], Partial fill upon patient request if the prescr... Start Date: 03/17/22 Status: OrderedPatient's Own Meds marijuana, [...] oldest [Reference Range]: 1 Height 185 cm (09/18/21 7:42 AM) Weight 92.1 kg (09/18/21 7:42 AM) Oxygen Saturation [94-100 %] 100 % (09/18/21 7:42 AM) Pulse Rate [55-90 bpm] 70 bpm (09/18/21 7:42 AM) Body Mass Index [18.5-24.99] 26.91 *H* (09/18/21 7:42 AM) Blood Pressure [90-138/55-84 mm Hg] 116/76 mm Hg (09/18/21 7:42 AM) Temperature [96.8-100.4 DegF] 98.4 DegF (09/18/21 7:42 AM) Liters per Minute 0 L/min (2/4/22 7:42 AM) Mode of Delivery (Oxygen) Room air (09/18/21 7:42 AM) Blood pressure sites Arm, left (09/18/21 7:42 AM) Temperature Route Temporal (09/18/21 7:42 AM) Weight Obtained Via Standing scale (09/18/21 7:42 AM) Social History Social History Type Response Tobacco Use: 4 or less cigarettes(le ss than 1/4 pack)/day in last 30 days. Sex Medical Equipment Implanted Date:08/16/19 Target Site:Groin Left Description Quantity MRI Company Model LEFT GROIN 1 VENTRALIGHT Unknown ASHVIN: No Information Assigning Authority: FDA Implanted Date:08/16/19 Target Site:Groin Right Description Quantity MRI Company Model MESH VENTRALIGHT ECHO CIR 6 - BARD ([id number]) 1 Bard Unknown ASHVIN: No Information Assigning Authority: FDA Implanted Date:08/16/19 Target Site:[facility] Description Quantity MRI Company Model MESH VENTRALIGHT ECHO CIR 6 - BARD ([id number]) 1 Bard Unknown ASHVIN: No Information Assigning Authority: FDA
--- OUTSIDE RECORDS SUMMARY | 2022-10-06 11:24 | XMS_ITS | Continuity of Care Document ---
:1970 Author Organization [facility] Address [address] [place] [address]- Care Team Providers Name Role Phone Cristy Owusu MD Primary Care Physician Encounter [facility] Date(s): 12/24/21 - 01/23/22 [facility] [address] [place] [address]- Attending Physician: Gissell Perry Admitting Physician: AdmtrGissell Referring Physician: Admtr, Ar8 Allergies, Adverse Reactions, Alerts Substance Reaction Severity Status penicillin Difficulty breathing Active Fruit ALL FRUIT Active Difficulty breathing Bee Stings DIFF BREATHING Active Immunizations Given and Recorded Vaccine Date Status Refusal Reason tetanus/diphtheria/pertussis, acel(Tdap) 12/15/15 Given influenza virus vaccine, inactivated1 06/07/14 Given influ virus vac, H1N1, inactive(oldterm)2 04/26/13 Given tetanus-diphtheria toxoids (Td)3 07/15/05 Given 1Result Comment: [06/07/2014] DECLINED FLU [id number] Note: DECLINES FLU SHOT3 Admin Note: per pt. Medications acetaminophen-oxyCODONE 325 mg-5 mg oral tablet 1, tablet, By Mouth, 3 times a day, Elbow pain M25.521 CONTROLLED SUB AGREEMENT MAPat checked fill on or after 01/14/22, # 84 tablet, Refills 0, Tot. Refills 0, Maintenance, 01/08/22 10:59:00 EDT, Route to Pharmacy Electronically, [facility]... Start Date: 01/08/22 Stop Date: 02/08/30 Status: Orderedatorvastatin 40 mg oral tablet 1 tablet = 40 mg, By Mouth, Daily, # 90 tablet, 3 Refills, Maintenance, 09/18/21 8:06:00 EST, Tablet, [facility] # [facility], 185, cm, 09/18/21 7:42:00 EST, Height Start Date: 09/18/21 Status: Orderedcitalopram 20 mg oral tablet 20 mg, 1, tablet, By Mouth, Daily, # 30 tablet, Refills 5, Tot. Refills 5, Maintenance, 09/22/21 11:08:00 EST, Route to Pharmacy Electronically, [facility] # [facility], 185, cm, 09/18/21 7:42:00 EST, Height Start Date: 09/22/21 Stop Date: 03/21/22 Status: Orderedibuprofen 600 mg oral tablet 600 mg, 1, tablet, By Mouth, 3 times a day with meals, PRN, # 90 tablet, Refills 5, Tot. Refills 5, Maintenance, Pain , Mild, 03/17/22 10:10:00 EDT, Route to Pharmacy Electronically, [facility] # [facility], Partial fill upon [...] Active Social History Social History Type Response Tobacco Use: 4 or less cigarettes(le ss than 1/4 pack)/day in last 30 days. Sex Medical Equipment Implanted Date:08/16/19 Target Site:Groin Left Description Quantity MRI Company Model LEFT GROIN 1 VENTRALIGHT Unknown ASHVIN: No Information Assigning Authority: FDA Implanted Date:08/16/19 Target Site:Groin Right Description Quantity MRI Company Model MESH VENTRALIGHT ECHO CIR 6 - BARD ([id number]) 1 Bard Unknown ASHVIN: No Information Assigning Authority: FDA Implanted Date:08/16/19 Target Site:[facility] Description Quantity MRI Company Model MESH VENTRALIGHT ECHO CIR 6 - BARD ([id number]) 1 Bard Unknown ASHVIN: No Information Assigning Authority: FDA
--- OUTSIDE RECORDS SUMMARY | 2022-10-06 11:24 | XMS_ITS | Continuity of Care Document ---
:1970 Author Organization [facility] Address [address] [place] [address]- Care Team Providers Name Role Phone Cristy Owusu MD Primary Care Physician Encounter [facility] Date(s): 08/23/19 - 08/30/19 [facility] [address] [place] [address]- Attending Physician: Cristy Owusu MD Allergies, Adverse [...] 07/15/05 Given 1Result Comment: [06/07/2014] DECLINED FLU [id number] Note: DECLINES FLU SHOT3 Admin Note: per [...] 08/01/19 14:01:00 EST, Route to Pharmacy Electronically, [facility] # [facility], 185, cm, 07/19/19... Start Date: 08/01/19 Stop Date: 08/29/19 Status: Ordered Problem List Condition Effective Dates Status Health Status Informant Bilateral inguinal hernia(Confirmed) Active Chronic depression(Confirmed) Active Cyst - pilonidal(Confirmed) Active Opiate analgesic use agreement 08/23/19 Active exists(Confirmed) Elbow pain, right(Confirmed) Active Hypercholesteremia(Confirmed) Active Insomnia, Unspecified(Confirmed) Active Lateral epicondylitis(Confirmed) Active Tobacco abuse(Confirmed) Active Hernia, umbilical(Confirmed) Active Procedures Procedure Date Related Diagnosis Body Site Status Bilateral inguinal hernia repair Completed Repair of umbilical hernia using surgical Completed mesh Vital Signs Most recent to oldest [Reference Range]: 1 Height 185 cm (08/23/19 8:35 AM) Weight 94 kg (08/23/19 8:35 AM) Oxygen Saturation [94-100 %] 99 % (08/23/19 8:35 AM) Pulse Rate [55-90 bpm] 72 bpm (08/23/19 8:35 AM) Body Mass Index [18.5-24.99] 27.47 *H* (08/23/19 8:35 AM) Blood Pressure [90-138/55-84 mm Hg] 110/66 mm Hg (08/23/19 8:35 AM) Temperature [96.8-100.4 DegF] 98.4 DegF (08/23/19 8:35 AM) Blood pressure sites Arm, left (08/23/19 8:35 AM) Temperature Route Temporal (08/23/19 8:35 AM) Weight Obtained Via Standing scale (08/23/19 8:35 AM) Social History Social History Type Response Tobacco Use: 4 or less cigarettes(le ss than 1/4 pack)/day in last 30 days. Sex Medical Equipment Implanted Date:08/16/19 Target Site:Groin Left Description Quantity MRI Company Model LEFT GROIN 1 VENTRALIGHT Unknown ASHVIN: No Information Assigning Authority: FDA Implanted Date:08/16/19 Target Site:Groin Right Description Quantity MRI Company Model MESH VENTRALIGHT ECHO CIR 6 - BARD ([id number]) 1 Bard Unknown ASHVIN: No Information Assigning Authority: FDA Implanted Date:08/16/19 Target Site:[facility] Description Quantity MRI Company Model MESH VENTRALIGHT ECHO CIR 6 - BARD ([id number]) 1 Bard Unknown ASHVIN: No Information Assigning Authority: FDA
--- OUTSIDE RECORDS SUMMARY | 2022-10-06 11:24 | XMS_ITS | Continuity of Care Document ---
:1970 Author Organization [facility] Address [address] [place] [address]- Care Team Providers Name Role Phone Cristy Owusu MD Primary Care Physician Encounter [facility] Date(s): 12/11/21 - 01/10/22 [facility] [address] [place] [address]- Attending Physician: Cristy Owusu MD Allergies, Adverse [...] 07/15/05 Given 1Result Comment: [06/07/2014] DECLINED FLU [id number] Note: DECLINES FLU SHOT3 Admin Note: per pt. Medications acetaminophen-oxyCODONE 325 mg-5 mg oral tablet 1, tablet, By Mouth, 3 times a day, Elbow pain M25.521 CONTROLLED SUB AGREEMENT MAPat checked fill on or after 01/14/22, # 84 tablet, Refills 0, Tot. Refills 0, Maintenance, 01/08/22 10:59:00 EDT, Route to Pharmacy Electronically, [facility] # [facility]... Start Date: 01/08/22 Stop Date: 02/08/30 Status: Orderedacetaminophen-oxyCODONE 325 mg-5 mg oral tablet 1, tablet, By Mouth, 3 times a day, Elbow pain M25.521 CONTROLLED SUB AGREEMENT MAPat checked fill on or after 12/18/21 for 28 days, # 84 tablet, Refills 0, Tot. Refills 0, Hard Stop, 01/11/22 9:53:00 EDT, 12/14/21 9:53:00 EDT, Route to Pharmacy [facility]... Start Date: 12/14/21 Stop Date: 01/11/22 Status: Orderedatorvastatin 40 mg oral tablet 1 [...] 09/22/21 11:08:00 EST, Route to Pharmacy Electronically, [facility] # [facility], 185, cm, 09/18/21 7:42:00 EST, Height Start Date: 09/22/21 Stop Date: 03/21/22 Status: Orderedibuprofen 600 mg oral tablet 600 mg, 1, tablet, By Mouth, 3 times a day with meals, PRN, # 90 tablet, Refills 5, Tot. Refills 5, Maintenance, Pain , Mild, 03/17/22 10:10:00 EDT, Route to Pharmacy Electronically, [facility] # [facility], Partial fill upon patient [...] MESH VENTRALIGHT ECHO CIR 6 - BARD ([id number]) 1 Bard Unknown ASHVIN: No Information Assigning Authority: FDA Implanted Date:08/16/19 Target Site:[facility] Description Quantity MRI Company Model MESH VENTRALIGHT ECHO CIR 6 - BARD ([id number]) 1 Bard Unknown ASHVIN: No Information Assigning Authority: FDA
--- OUTSIDE RECORDS SUMMARY | 2022-10-06 11:24 | XMS_ITS | Continuity of Care Document ---
:1970 Author Organization [facility] Address [address] [place] [address]- Care Team Providers Name Role Phone Cristy Owusu MD Primary Care Physician Encounter [facility] Date(s): 11/07/20 - 12/07/20 [facility] [address] [place] [address]- Allergies, Adverse Reactions, Alerts Substance Reaction Severity Status penicillin Difficulty breathing Active Bee Stings DIFF BREATHING Active Fruit ALL FRUIT Active Difficulty breathing Immunizations Given and Recorded Vaccine Date Status Refusal Reason tetanus/diphtheria/pertussis, acel(Tdap) 12/15/15 Given influenza virus vaccine, inactivated1 06/07/14 Given influ virus vac, H1N1, inactive(oldterm)2 04/26/13 Given tetanus-diphtheria toxoids (Td)3 07/15/05 Given 1Result Comment: [06/07/2014] DECLINED FLU [id number] Note: DECLINES FLU SHOT3 Admin Note: per pt. Medications acetaminophen-oxyCODONE 325 mg-5 mg oral tablet 1, tablet, By Mouth, 3 times a day, Elbow pain M25.521 CONTROLLED SUB AGREEMENT MAPat checked fill on or after 11/28/2020, # 84 tablet, Refills 0, Tot. Refills 0, Maintenance, 11/25/20 18:12:00 EDT, Route to Pharmacy Electronically, [facility]... Start Date: 11/25/20 Stop Date: 12/23/20 Status: Orderedatorvastatin 40 mg oral tablet 1 tablet = 40 mg, By Mouth, Daily, # 30 tablet, 5 Refills, Maintenance, 09/18/20 10:08:00 EST, Tablet, [facility] # [facility], 185, cm, 09/18/20 9:54:00 EST, Height, 93, kg, 07/19/19 8:00:00 EST, Dry Weight Start Date: 09/18/20 Status: Orderedcitalopram 20 mg oral tablet 20 mg, 1, tablet, By Mouth, Daily, # 30 tablet, Refills 5, Tot. Refills 5, Maintenance, 09/27/20 11:08:00 EST, Route to Pharmacy Electronically, [facility] [...] 09/18/20 10:10:00 EST, Route to Pharmacy Electronically, [facility] [...] MESH VENTRALIGHT ECHO CIR 6 - BARD ([id number]) 1 Bard Unknown ASHVIN: No Information Assigning Authority: FDA Implanted Date:08/16/19 Target Site:[facility] Description Quantity MRI Company Model MESH VENTRALIGHT ECHO CIR 6 - BARD ([id number]) 1 Bard Unknown ASHVIN: No Information Assigning Authority: FDA
--- OUTSIDE RECORDS SUMMARY | 2022-10-06 11:24 | XMS_ITS | Continuity of Care Document ---
:1970 Author Organization [facility] Address [address] [place] [address]- Care Team Providers Name Role Phone Cristy Owusu MD Primary Care Physician Encounter [facility] Date(s): 08/23/19 - 08/30/[address] [address]- [facility] Attending Physician: Cristy Owusu MD Allergies, Adverse [...] 07/15/05 Given 1Result Comment: [06/07/2014] DECLINED FLU [id number] Note: DECLINES FLU SHOT3 Admin Note: per [...] 08/01/19 14:01:00 EST, Route to Pharmacy Electronically, [facility], 185, cm, 07/19/19... Start [...] MESH VENTRALIGHT ECHO CIR 6 - BARD ([id number]) 1 Bard Unknown ASHVIN: No Information Assigning Authority: FDA Implanted Date:08/16/19 Target Site:[facility] Description Quantity MRI Company Model MESH VENTRALIGHT ECHO CIR 6 - BARD ([id number]) 1 Bard Unknown ASHVIN: No Information Assigning Authority: FDA
--- OUTSIDE RECORDS SUMMARY | 2022-10-06 11:24 | XMS_ITS | Continuity of Care Document ---
:1970 Author Organization [facility] Address [address] [place] [address]- Care Team Providers Name Role Phone Cristy Owusu MD Primary Care Physician Encounter [facility] Date(s): 09/18/21 - 10/18/21 [facility] [address] [place] [address]- Attending Physician: Gissell Perry Admitting Physician: AdmtrGissell [...] 07/15/05 Given 1Result Comment: [06/07/2014] DECLINED FLU [id number] Note: DECLINES FLU SHOT3 Admin Note: per pt. Medications acetaminophen-oxyCODONE 325 mg-5 mg oral tablet 1, tablet, By Mouth, 3 times a day, Elbow pain M25.521 CONTROLLED SUB AGREEMENT MAPat checked fill on or after 09/28/21, # 84 tablet, Refills 0, Tot. Refills 0, Maintenance, 09/23/21 11:28:00 EST, Routeto Pharmacy Electronically, [facility] #... Start Date: 09/23/21 Stop Date: 10/21/21 Status: Orderedatorvastatin 40 mg oral tablet 1 tablet = 40 mg, By Mouth, Daily, # 90 tablet, 3 Refills, Maintenance, 09/18/21 8:06:00 EST, Tablet, [facility] # 50, 185, cm, 09/18/21 7:42:00 [...] 03/17/22 10:10:00 EDT, Route to Pharmacy Electronically, [facility] # [facility], Partial fill upon [...] MESH VENTRALIGHT ECHO CIR 6 - BARD ([id number]) 1 Bard Unknown ASHVIN: No Information Assigning Authority: FDA Implanted Date:08/16/19 Target Site:[facility] Description Quantity MRI Company Model MESH VENTRALIGHT ECHO CIR 6 - BARD ([id number]) 1 Bard Unknown ASHVIN: No Information Assigning Authority: FDA
--- OUTSIDE RECORDS SUMMARY | 2022-10-06 11:24 | XMS_ITS | Continuity of Care Document ---
:1970 Author Organization [facility] Address [address] [place] [address]- Care Team Providers Name Role Phone Cristy Owusu MD Primary Care Physician [place] [facility] Date(s): 08/31/19 - 09/07/[address] [place] [address]- [facility] Encounter Diagnosis Bilateral inguinal hernia (Discharge Diagnosis) - 08/31/19 Attending Physician: Frederic Marcelo MD Referring Physician: Cristy Owusu MD Allergies, Adverse Reactions, Alerts Substance Reaction Severity Status penicillin Difficulty breathing Active Bee Stings DIFF BREATHING Active Fruit ALL FRUIT Active Difficulty breathing Immunizations Given and Recorded Vaccine Date Status Refusal Reason tetanus/diphtheria/pertussis, acel(Tdap) 12/15/15 Given influenza virus vaccine, inactivated1 06/07/14 Given influ virus vac, H1N1, inactive(oldterm)2 04/26/13 Given tetanus-diphtheria toxoids (Td)3 07/15/05 Given 1Result Comment: [06/07/2014] DECLINED FLU [id number] Note: DECLINES FLU SHOT3 Admin Note: per [...] 08/31/19 11:57:00 EST, Route to Pharmacy Electronically, [facility] # [facility], 185, cm, 08/31/19 11:41:00 [...] 08/01/19 14:01:00 EST, Route to Pharmacy Electronically, [facility] # 50, 185, cm, 07/19/19... Start Date: 08/01/19 Stop Date: 08/29/19 Status: OrderedPriLOSEC OTC 20 mg oral delayed release tablet 1 tablet = 20 mg, By Mouth, Daily, # 90 tablet, 1 Refills, Maintenance, 08/31/19 11:56:00 EST, CR Tablet, [email or web address] # [facility], 185, cm, 08/31/19 11:41:00 [...] Active Tobacco abuse(Confirmed) Active Hernia, umbilical(Confirmed) Active Diagnosis Diagnosis Type Effective Dates Health Status Clinical In formant Service Bilateral Discharge 08/31/19 inguinal hernia Diagnosis Vital Signs Most recent to oldest [Reference Range]: 1 Height 185 cm (08/31/19 11:41 AM) Weight 91 kg (08/31/19 11:41 AM) Body Mass Index [18.5-24.99] 26.59 *H* (08/31/19 11:41 AM) Respiratory Rate [16-30 br/min] 16 br/min (08/31/19 11:41 AM) Temperature [96.8-100.4 DegF] 98.1 DegF (08/31/19 11:41 AM) Temperature Route Temporal (08/31/19 11:41 AM) Weight Obtained Via Standing scale (08/31/19 11:41 AM) Social History Social History Type Response Tobacco Use: 4 or less cigarettes(le ss than 1/4 pack)/day in last 30 days. Sex Medical Equipment Implanted Date:08/16/19 Target Site:Groin Left Description Quantity MRI Company Model LEFT GROIN 1 VENTRALIGHT Unknown ASHVIN: No Information Assigning Authority: FDA Implanted Date:08/16/19 Target Site:Groin Right Description Quantity MRI Company Model MESH VENTRALIGHT ECHO CIR 6 - BARD ([id number]) 1 Bard Unknown ASHVIN: No Information Assigning Authority: FDA Implanted Date:08/16/19 Target Site:[facility] Description Quantity MRI Company Model MESH VENTRALIGHT ECHO CIR 6 - BARD ([id number]) 1 Bard Unknown ASHVIN: No Information Assigning Authority: FDA
--- OUTSIDE RECORDS SUMMARY | 2022-10-06 11:24 | XMS_ITS | Continuity of Care Document ---
:1970 Author Organization [facility] Address [address] [place] [address]- Care Team Providers Name Role Phone Cristy Owusu MD Primary Care Physician Encounter [facility] [id number] Date(s): 08/23/19 - 09/02/19 [facility] [address] [place] [address]- Attending Physician: Gissell Perry Admitting Physician: AdmGissell [place] Referring Physician: AdmtrGissell Allergies, Adverse Reactions, Alerts Substance Reaction Severity Status penicillin Difficulty breathing Active Bee Stings DIFF BREATHING Active Fruit ALL FRUIT Active Difficulty breathing Immunizations Given and Recorded Vaccine Date Status Refusal Reason tetanus/diphtheria/pertussis, acel(Tdap) 12/15/15 Given influenza virus vaccine, inactivated1 06/07/14 Given influ virus vac, H1N1, inactive(oldterm)2 04/26/13 Given tetanus-diphtheria toxoids (Td)3 07/15/05 Given 1Result Comment: [06/07/2014] DECLINED FLU [id number] Note: DECLINES FLU SHOT3 Admin Note: per [...] 08/31/19 11:57:00 EST, Route to Pharmacy Electronically, [facility] # [facility], 185, cm, 08/31/19 11:41:00 [...] 08/01/19 14:01:00 EST, Route to Pharmacy Electronically, [facility] # 50, 185, cm, 07/19/19... Start Date: 08/01/19 Stop Date: 08/29/19 Status: OrderedPriLOSEC OTC 20 mg oral delayed release tablet 1 tablet = 20 mg, By Mouth, Daily, # 90 tablet, 1 Refills, Maintenance, 08/31/19 11:56:00 EST, CR Tablet, [facility] # 50, 185, cm, 08/31/19 11:41:00 [...] MESH VENTRALIGHT ECHO CIR 6 - BARD ([id number]) 1 Bard Unknown ASHVIN: No Information Assigning Authority: FDA Implanted Date:08/16/19 Target Site:[facility] Description Quantity MRI Company Model MESH VENTRALIGHT ECHO CIR 6 - BARD ([id number]) 1 Bard Unknown ASHVIN: No Information Assigning Authority: FDA
--- OUTSIDE RECORDS SUMMARY | 2022-10-06 11:24 | XMS_ITS | Continuity of Care Document ---
:1970 Author Organization [facility] Address [address] [place] [address]- Care Team Providers Name Role Phone Cristy Owusu MD Primary Care Physician Encounter [facility] Date(s): 08/31/19 - 09/10/[address] [place] [address]- [facility] Attending Physician: Gissell Perry Admitting Physician: AdmtrGissell Referring Physician: Admtr Ar8 Allergies, Adverse Reactions, Alerts Substance Reaction Severity Status penicillin Difficulty breathing Active Bee Stings DIFF BREATHING Active Fruit ALL FRUIT Active Difficulty breathing Immunizations Given and Recorded Vaccine Date Status Refusal Reason tetanus/diphtheria/pertussis, acel(Tdap) 12/15/15 Given influenza virus vaccine, inactivated1 06/07/14 Given influ virus vac, H1N1, inactive(oldterm)2 04/26/13 Given tetanus-diphtheria toxoids (Td)3 07/15/05 Given 1Result Comment: [06/07/2014] DECLINED FLU [id number] Note: DECLINES FLU SHOT3 Admin Note: per [...] 08/31/19 11:57:00 EST, Route to Pharmacy Electronically, [facility] # [facility], 185, cm, 08/31/19 11:41:00 [...] 08/01/19 14:01:00 EST, Route to Pharmacy Electronically, [facility] # 50, 185, cm, 07/19/19... Start Date: 08/01/19 Stop Date: 08/29/19 Status: OrderedPriLOSEC OTC 20 mg oral delayed release tablet 1 tablet = 20 mg, By Mouth, Daily, # 90 tablet, 1 Refills, Maintenance, 08/31/19 11:56:00 EST, CR Tablet, [facility] # 50, 185, cm, 08/31/19 11:41:00 [...] MESH VENTRALIGHT ECHO CIR 6 - BARD ([id number]) 1 Bard Unknown ASHVIN: No Information Assigning Authority: FDA Implanted Date:08/16/19 Target Site:[facility] Description Quantity MRI Company Model MESH VENTRALIGHT ECHO CIR 6 - BARD ([id number]) 1 Bard Unknown ASHVIN: No Information Assigning Authority: FDA
--- OUTSIDE RECORDS SUMMARY | 2022-10-06 11:24 | XMS_ITS | Continuity of Care Document ---
:1970 Author Organization [facility] Address [address] [place] [address]- Care Team Providers Name Role Phone Cristy Owusu MD Primary Care Physician Encounter [facility] Date(s): 12/11/21 - 01/10/22 [facility] [address] [place] [address]- [place] Allergies, Adverse Reactions, Alerts Substance Reaction Severity Status penicillin Difficulty breathing Active Bee Stings DIFF BREATHING Active Fruit ALL FRUIT Active Difficulty breathing Immunizations Given and Recorded Vaccine Date Status Refusal Reason tetanus/diphtheria/pertussis, acel(Tdap) 12/15/15 Given influenza virus vaccine, inactivated1 06/07/14 Given influ virus vac, H1N1, inactive(oldterm)2 04/26/13 Given tetanus-diphtheria toxoids (Td)3 07/15/05 Given 1Result Comment: [06/07/2014] DECLINED FLU [id number] Note: DECLINES FLU SHOT3 Admin Note: per pt. Medications acetaminophen-oxyCODONE 325 mg-5 mg oral tablet 1, tablet, By Mouth, 3 times a day, Elbow pain M25.521 CONTROLLED SUB AGREEMENT MAPat checked fill on or after 01/14/22, # 84 tablet, Refills 0, Tot. Refills 0, Maintenance, 01/08/22 10:59:00 EDT, Route to Pharmacy Electronically, [facility] # 5... Start Date: 01/08/22 Stop [...] 09/22/21 11:08:00 EST, Route to Pharmacy Electronically, [facility], 185, cm, 09/18/21 7:42:00 EST, Height Start Date: 09/22/21 Stop Date: 03/21/22 Status: Orderedibuprofen 600 mg oral tablet 600 mg, 1, tablet, By Mouth, 3 times a day with meals, PRN, # 90 tablet, Refills 5, Tot. Refills 5, Maintenance, Pain , Mild, 03/17/22 10:10:00 EDT, Route to Pharmacy Electronically, [facility] # 50, Partial fill upon [...] MESH VENTRALIGHT ECHO CIR 6 - BARD ([id number]) 1 Bard Unknown ASHVIN: No Information Assigning Authority: FDA Implanted Date:08/16/19 Target Site:[facility] Description Quantity MRI Company Model MESH VENTRALIGHT ECHO CIR 6 - BARD ([id number]) 1 Bard Unknown ASHVIN: No Information Assigning Authority: FDA
--- OUTSIDE RECORDS SUMMARY | 2022-10-06 11:24 | XMS_ITS | Continuity of Care Document ---
:1970 Author Organization [facility] Address [address] [place] [address]- Care Team Providers Name Role Phone Cristy Owusu MD Primary Care Physician [id number] Date(s): 01/18/20 - 01/25/20 [facility] [address] [place] [address]- Attending Physician: Cristy Owusu MD Allergies, Adverse [...] 07/15/05 Given 1Result Comment: [06/07/2014] DECLINED FLU [id number] Note: DECLINES FLU SHOT3 Admin Note: per [...] AGREEMENT MAPat checked fill on or after 01/30/20, # 84 tablet, Refills 0, Tot. Refills 0, Maintenance, 01/25/20 15:47:00 EDT, Routeto Pharmacy Electronically, [facility] #... Start Date: 01/25/20 Stop Date: 02/22/20 Status: Orderedatorvastatin 40 mg oral tablet 1 tablet = 40 mg, By Mouth, Daily, # 30 tablet, 5 Refills, Maintenance, 08/06/19 13:25:00 EST, Tablet, [facility] # 50, 185, cm, 07/19/19 8:00:00 [...] 08/31/19 11:57:00 EST, Route to Pharmacy Electronically, [facility] # [facility], 185, cm, 08/31/19 11:41:00 EST, Height, 93, kg, 07/19/19 8:... Start Date: 08/31/19 Stop Date: 10/01/20 Status: OrderedPatient's Own Meds marijuana, Maintenance, 04/12/19 9:03:06 EDT Start Date: 04/12/19 Status: OrderedPriLOSEC OTC 20 mg oral delayed release tablet 1 tablet = 20 mg, By Mouth, Daily, # 90 tablet, 1 Refills, Maintenance, 08/31/19 11:56:00 EST, CR Tablet, [facility] # [facility], 185, cm, 08/31/19 [...] oldest [Reference Range]: 1 Height 185 cm (01/18/20 7:59 AM) Blood pressure sites Arm, left (01/18/20 7:59 AM) Social History Social History Type [...] MESH VENTRALIGHT ECHO CIR 6 - BARD ([id number]) 1 Bard Unknown ASHVIN: No Information Assigning Authority: FDA Implanted Date:08/16/19 Target Site:[facility] Description Quantity MRI Company Model MESH VENTRALIGHT ECHO CIR 6 - BARD ([id number]) 1 Bard Unknown ASHVIN: No Information Assigning Authority: FDA
--- OUTSIDE RECORDS SUMMARY | 2022-10-06 11:25 | XMS_ITS | Continuity of Care Document ---
:[address] [facility] Address [address] [place] [address]- Care Team Providers Name Role Phone Cristy Owusu MD Primary Care Physician Encounter [facility] Date(s): 12/24/21 - 12/31/21 [facility] [address] [place] [address]- Attending Physician: Cristy Owusu MD Allergies, Adverse [...] 07/15/05 Given 1Result Comment: [06/07/2014] DECLINED FLU [id number] Note: DECLINES FLU SHOT3 Admin Note: per pt. Medications acetaminophen-oxyCODONE 325 mg-5 mg oral tablet 1, tablet, By Mouth, 3 times a day, Elbow pain M25.521 CONTROLLED SUB AGREEMENT MAPat checked fill on or after 12/18/21, # 84 tablet, Refills 0, Tot. Refills 0, Maintenance, 12/14/21 9:53:00 EDT, Route to Pharmacy Electronically, [facility]... Start Date: 12/14/21 Stop Date: 01/11/22 Status: Orderedatorvastatin 40 mg oral tablet 1 tablet = 40 mg, By Mouth, Daily, # 90 tablet, 3 Refills, Maintenance, 09/18/21 8:06:00 EST, Tablet, [facility] # [facility], 185, cm, 09/18/21 7:42:00 EST, Height Start Date: 09/18/21 Status: Orderedcitalopram 20 mg oral tablet 20 mg, 1, tablet, By Mouth, Daily, # 30 tablet, Refills 5, Tot. Refills 5, Maintenance, 09/22/21 11:08:00 EST, Route to Pharmacy Electronically, [facility] # [facility], 185, cm, 09/18/21 7:42:00 EST, Height Start Date: 09/22/21 Stop Date: 03/21/22 Status: Orderedibuprofen 600 mg oral tablet 600 mg, 1, tablet, By Mouth, 3 times a day with meals, PRN, # 90 tablet, Refills 5, Tot. Refills 5, Maintenance, Pain , Mild, 03/17/22 10:10:00 EDT, Route to Pharmacy Electronically, [facility] # [facility], Partial fill upon patient [...] oldest [Reference Range]: 1 Height 185 cm (12/24/21 10:04 AM) Weight 93.8 kg (12/24/21 10:04 AM) Oxygen Saturation [94-100 %] 97 % (12/24/21 10:04 AM) Pulse Rate [55-90 bpm] 70 bpm (12/24/21 10:04 AM) Body Mass Index [18.5-24.99] 27.41 *H* (12/24/21 10:04 AM) Blood Pressure [90-138/55-84 mm Hg] 126/84 mm Hg (12/24/21 10:04 AM) Temperature [96.8-100.4 DegF] 97.3 DegF (12/24/21 10:04 AM) Liters per Minute 0 L/min (12/24/21 10:04 AM) Mode of Delivery (Oxygen) Room air (12/24/21 10:04 AM) Blood pressure sites Arm, left (12/24/21 10:04 AM) Temperature Route Temporal (12/24/21 10:04 AM) Weight Obtained Via Standing scale (12/24/21 10:04 AM) Social History Social History Type Response Tobacco Use: 4 or less cigarettes(le ss than 1/4 pack)/day in last 30 days. Sex Medical Equipment Implanted Date:08/16/19 Target Site:Groin Left Description Quantity MRI Company Model LEFT GROIN 1 VENTRALIGHT Unknown ASHVIN: No Information Assigning Authority: FDA Implanted Date:08/16/19 Target Site:Groin Right Description Quantity MRI Company Model MESH VENTRALIGHT ECHO CIR 6 - BARD ([id number]) 1 Bard Unknown ASHVIN: No Information Assigning Authority: FDA Implanted Date:08/16/19 Target Site:[facility] Description Quantity MRI Company Model MESH VENTRALIGHT ECHO CIR 6 - BARD ([id number]) 1 Bard Unknown ASHVIN: No Information Assigning Authority: FDA
--- OUTSIDE RECORDS SUMMARY | 2022-10-06 11:25 | XMS_ITS | Continuity of Care Document ---
:1970 Author Organization [facility] Address [address] [place] [address]- Care Team Providers Name Role Phone Cristy Owusu MD Primary Care Physician Encounter [facility] Date(s): 03/27/20 - 04/26/[address] [address]- [facility] Attending Physician: Beltran Perry8 Admitting Physician: AdmtrGissell Referring Physician: Admtr, Ar8 [...] 07/15/05 Given 1Result Comment: [06/07/2014] DECLINED FLU [id number] Note: DECLINES FLU SHOT3 Admin Note: per pt. Medications acetaminophen-oxyCODONE 325 mg-5 mg oral tablet 1, tablet, By Mouth, 3 times a day, Elbow pain M25.521 CONTROLLED SUB AGREEMENT MAPat checked fill on or after 04/23/2020, # 84 tablet, Refills 0, Tot. Refills 0, Maintenance, 04/22/20 13:22:00 EDT, Route to Pharmacy Electronically, [facility] #... Start Date: 04/22/20 Stop Date: 05/20/20 Status: Orderedatorvastatin 40 mg oral tablet 1 tablet = 40 mg, By Mouth, Daily, # 30 tablet, 5 Refills, Maintenance, 03/27/20 11:50:00 EDT, Tablet, [facility] # [facility], 185, cm, 01/18/20 7:59:00 EDT, Height, 93, kg, 07/19/19 8:00:00 EST, Dry Weight Start Date: 03/27/20 Status: Orderedcitalopram 20 mg oral tablet 20 mg, 1, tablet, By Mouth, Daily, # 30 tablet, Refills 5, Tot. Refills 5, Maintenance, 03/31/20 11:08:00 EDT, Route to Pharmacy Electronically, [facility] # [facility], 185, cm, 03/31/20 10:50:00 [...] 08/31/19 11:57:00 EST, Route to Pharmacy Electronically, [facility] # [facility], 185, cm, 08/31/19 11:41:00 [...] MESH VENTRALIGHT ECHO CIR 6 - BARD ([id number]) 1 Bard Unknown ASHVIN: No Information Assigning Authority: FDA Implanted Date:08/16/19 Target Site:[facility] Description Quantity MRI Company Model MESH VENTRALIGHT ECHO CIR 6 - BARD ([id number]) 1 Bard Unknown ASHVIN: No Information Assigning Authority: FDA
--- NOTE | 2022-10-06 11:37 | ECG_ITS ---
Test Reason : dizziness Blood Pressure : / mmHG Vent. Rate : 058 BPM Atrial Rate : 058 BPM P-R Int : 168 ms QRS Dur : 084 ms QT Int : 398 ms P-R-T Axes : 055 -10 020 degrees QTc Int : 390 ms Artifact in tracing Sinus bradycardia Otherwise normal ECG No previous ECGs available Referred By: Adelina Camacho Electronically Signed By:SIENA CUMMINS
--- NOTE | 2022-10-06 11:39 | ED.DIZZY ---
HPI - Dizziness General Chief Complaint: Dizziness Stated Complaint: dizzy, disorientated Time Seen by Provider: 10/06/22 11:23 Source: patient and family (Mother) Mode of arrival: ambulatory Limitations: no limitations History of Present Illness HPI Narrative: 52-year-old male came in for evaluation of feeling dizzy and disoriented. Patient's symptoms started about 4 days ago intermittent comes and go, today since this a.m. the symptoms has been constant patient feels like his walking on the water feels spacey and disoriented, no weakness, no numbness, no speech abnormality. Patient was complaining of left ear pain which is chronic since he was child. Related Data Previous Rx's Medication Instructions Recorded doxycycline hyclate 100 mg tablet 100 mg PO BID 7 days #14 tabs 12/11/21 meclizine 25 mg tablet 25 mg PO BID PRN dizziness #30 tabs 10/06/22 Allergies Allergy/AdvReac Type Severity Reaction Status Date / Time Penicillins [PENICILLINS] Allergy Severe ANAPHYLAXIS Verified 10/06/22 11:09 tomato [TOMATO] Allergy Severe ANAPHYLAXIS Verified 10/06/22 11:09 penicillin V Allergy Unknown Abdominal Verified 10/06/22 11:09 Pain FRUIT Allergy Severe ANAPHYLAXIS Uncoded 05/01/20 14:54 Review of Systems Review of Systems: All other systems are reviewed and are negative Constitutional: Reports as per HPI and Reports no additional constitutional complaints Eyes: Reports as per HPI and Reports no additional eye complaints Reports system reviewed and no additional complaints, except as documented Cardiovascular: Reports as per HPI and Reports no additional cardiovascular complaints Respiratory: Reports as per HPI and Reports no additional respiratory complaints Gastrointestinal: Reports as per HPI and Reports no additional gastrointestinal complaints Genitourinary: Reports no additional female genitourinary complaints Musculoskeletal: Reports no additional musculoskeletal complaints Skin/Breast: Reports system reviewed and no additional complaints, except as docu Psychiatric: Reports no additional psychiatric complaints Endocrine: Reports no additional endocrine complaints Hematologic/Lymphatic: Reports no additional hematologic/lymphatic complaints Allergic/Immunologic: Reports no additional allergic/immunologic complaints Reports system reviewed and no additional complaints, except as documented and Reports Abnormal speech present [facility] Past Medical History Medical History Anxiety Depression High cholesterol Social History Social History Smoked in Last 30 Days: Yes Use of substances other than those prescribed or required for medical reasons: No Advance Directives: No Physical Exam Vital Signs: Vital Signs: Last Vital Signs Temp 98.2 F 10/06/22 11:09 Pulse 77 10/06/22 11:09 Resp 16 10/06/22 11:09 BP 141/87 H 10/06/22 11:09 Pulse Ox 98 10/06/22 11:09 O2 Del Method 10/06/22 11:09 BMI result Body Mass Index 26.4 Vital signs have been reviewed as appeared to be correct. Blood pressure normal. Heart rate normal. Respiration rate normal. Temperature normal. Oxygen saturation normal. Appearance: Alert. Oriented X3. No acute distress. Head: Normal external exam. Normocephalic. Atraumatic. No Roque signs noted. No raccoon eyes noted Eyes: PERRLA. EOMI. Conjunctiva and sclera normal. Eyelids normal. ENT: TM's Normal. Pharynx normal. Uvula midline. Moist mucous membranes. No trismus noted. No drooling noted. No muffled voice noted. Neck: Normal inspection. Neck supple. FROM. No adenopathy. Thyroid Normal. No meningeal signs. No neck mass noted. CVS: Normal heart rate and rhythm. Heart sound normal. No murmurs noted. Pulses normal throughout. Respiratory: No respiratory distress. Painless inspiration. Breath sounds normal. No wheezes/rales/rhonchi noted. Chest nontender. No accessory muscle usage noted or decreased air movement noted. Abdomen: Soft and nontender. Bowel sounds normal in all 4 quadrants. No distention noted. No organomegaly noted. No visible injury noted. Back: No CVA tenderness. Full range of motion noted. Skin: Skin warm and dry. Normal skin color. Normal skin turgor. No rashes/lesions/lacerations noted. Extremities: No lower extremity edema. Extremities exhibit normal range of motion. Extremities nontender. Neuro: Oriented X 3. Cranial nerve exam: II-XII are grossly intact No motor deficit. No sensory deficit. Reflexes normal. Course Course Course Narrative: 52-year-old male came in for evaluation of dizziness history, physical exam, CT, MRI of the brain are indicating peripheral vertigo will discharge the patient on meclizine. Medications Administered Discontinued Medications Generic Name Dose Route Start Last Admin Trade Name Babita PRN Reason Stop Dose Admin Sodium Chloride 1,000 mls @ 999 mls/hr 10/06/22 11:36 10/06/22 12:42 Ns IV 10/06/22 12:36 Infused .Q1H1M ONE Infusion Meclizine HCl 25 mg 10/06/22 11:40 10/06/22 12:00 Meclizine Hcl 25 Mg Tablet PO 10/06/22 11:41 25 mg ONCE ONE Administration Medical Decision Making Differential Diagnosis Differential Diagnoses: The differential diagnosis associated with the presentation includes (Peripheral vertigo, central vertigo, CVA, intracranial pathology.) Lab Data MDM Lab Attestation statement: I reviewed the patient's lab results. 10/06/22 11:51 10/06/22 11:51 Labs: Lab Results 10/06/22 10/06/22 10/06/22 Range/Units 11:51 11:51 11:51 WBC 5.2 (4.8-10.8) X10*3/uL RBC 4.77 (4.60-5.80) X10*6/uL Hgb 14.7 (14.0-18.0) g/dl Hct 43.4 (42.0-52.0) % MCV 91.0 (80.0-98.0) fL MCH 30.8 (27.0-33.0) pg MCHC 33.9 (31.0-36.0) g/dl RDW 12.2 (11.0-16.0) % Plt Count 192 (160-400) X10*3/uL MPV 9.9 (9.4-12.4) fL Immature Gran % (Auto) 0.2 (0.0-0.4) % Neut % (Auto) 58.7 (45-73) % Lymph % (Auto) 29.4 (20-40) % [place] % (Auto) 9.4 (2-11) % Eos % (Auto) 1.9 (0-4) % Baso % (Auto) 0.4 (0-2) % Lymph # (Auto) 1.5 (1.2-4.9) X10*3/uL [place] # (Auto) 0.5 (0.1-1.2) X10*3/uL Eos # (Auto) 0.1 (0.0-0.4) X10*3/uL Baso # (Auto) 0.0 (0.0-0.2) X10*3/uL Abs Immat Gran (auto) 0.01 (0.00-0.03) X10*3/uL Absolute Neuts (auto) 3.1 (2.0-8.3) x10*3/uL Absolute Nucleated RBC 0.000 (0.0-0.012) X10*3/uL Nucleated RBC % (auto) 0.0 (0.0-0.2) /100WBC Sodium 140 (135-145) mmol/L Potassium 4.1 (3.3-5.1) mmol/L Chloride 109 H (96-108) mmol/L Carbon Dioxide 25 (22-29) mmol/L Anion Gap 10 L (12-20) BUN 11 (9-16) mg/dL Creatinine 1.02 (0.5-1.4) mg/dL Estim Creat Clear Calc 88.1 Estimated GFR > 60 Random Glucose 107 (60-115) mg/dL Calcium 9.1 (8.4-10.2) mg/dL Total Bilirubin 2.8 H (0.0-1.0) mg/dL Direct Bilirubin 0.7 H (0.0-0.5) mg/dL AST 18 (5-37) U/L ALT 36 (0-40) U/L Alkaline Phosphatase 68 (39-117) U/L Troponin I High Sens < 3.5 (<3.5-35.0) ng/L B-Natriuretic Peptide (<100) pg/mL Total Protein 6.1 L (6.5-8.0) g/dL Albumin 4.3 (3.5-5.0) g/dL Lipase 10 (8-78) U/L Urine Color Urine Appearance Urine pH (5.0-9.0) Ur Specific [place] (1.005-1.025) Urine Protein (Neg-Trace) mg/dL Urine Glucose (UA) (Negative) mg/dL Urine Ketones (Negative) mg/dL Urine Blood (Negative) Urine Nitrite (Negative) Ur Leukocyte Esterase (Negative) COVID-19 (VANITA) (Negative) COVID-19 Clin Com 10/06/22 10/06/22 10/06/22 Range/Units 11:51 11:51 14:23 WBC (4.8-10.8) X10*3/uL RBC (4.60-5.80) X10*6/uL Hgb (14.0-18.0) g/dl Hct (42.0-52.0) % MCV (80.0-98.0) fL MCH (27.0-33.0) pg MCHC (31.0-36.0) g/dl RDW (11.0-16.0) % Plt Count (160-400) X10*3/uL MPV (9.4-12.4) fL Immature Gran % (Auto) (0.0-0.4) % Neut % (Auto) (45-73) % Lymph % (Auto) (20-40) % [place] % (Auto) (2-11) % Eos % (Auto) (0-4) % Baso % (Auto) (0-2) % Lymph # (Auto) (1.2-4.9) X10*3/uL [place] # (Auto) (0.1-1.2) X10*3/uL Eos # (Auto) (0.0-0.4) X10*3/uL Baso # (Auto) (0.0-0.2) X10*3/uL Abs Immat Gran (auto) (0.00-0.03) X10*3/uL Absolute Neuts (auto) (2.0-8.3) x10*3/uL Absolute Nucleated RBC (0.0-0.012) X10*3/uL Nucleated RBC % (auto) (0.0-0.2) /100WBC Sodium (135-145) mmol/L Potassium (3.3-5.1) mmol/L Chloride (96-108) mmol/L Carbon Dioxide (22-29) mmol/L Anion Gap (12-20) BUN (9-16) mg/dL Creatinine (0.5-1.4) mg/dL Estim Creat Clear Calc Estimated GFR Random Glucose (60-115) mg/dL Calcium (8.4-10.2) mg/dL Total Bilirubin (0.0-1.0) mg/dL Direct Bilirubin (0.0-0.5) mg/dL AST (5-37) U/L ALT (0-40) U/L Alkaline Phosphatase (39-117) U/L Troponin I High Sens (<3.5-35.0) ng/L B-Natriuretic Peptide < 10 (<100) pg/mL Total Protein (6.5-8.0) g/dL Albumin (3.5-5.0) g/dL Lipase (8-78) U/L Urine Color Yellow Urine Appearance Clear Urine pH 7.0 (5.0-9.0) Ur Specific [place] 1.010 (1.005-1.025) Urine Protein Negative (Neg-Trace) mg/dL Urine Glucose (UA) Negative (Negative) mg/dL Urine Ketones Negative (Negative) mg/dL Urine Blood Negative (Negative) Urine Nitrite Negative (Negative) Ur Leukocyte Esterase Negative (Negative) COVID-19 (VANITA) Negative (Negative) COVID-19 Clin Com See Note Independent Interpretation I performed an independent interpretation of an: Plain X-Ray (Chest: Unremarkable examination.) and CT Scan (Head: No acute intracranial pathology.) Radiology Impression Discussion of test interpretation with radiology: I have reviewed the radiologist's reading. Discharge Plan Discharge Clinical Impression: Benign paroxysmal positional vertigo Patient Disposition: Home, Self-Care Instructions: Vertigo (ED) Prescriptions: New meclizine 25 mg tablet 25 mg PO BID PRN (Reason: dizziness) Qty: 30 0RF No Action doxycycline hyclate 100 mg tablet 100 mg PO BID 7 Days Qty: 14 0RF Referrals: Cristy Owusu MD [Primary Care Provider] -
[2022-10-06 11:56] LABS: MANUAL DIFF FLAG NO
[2022-10-06 11:58] LABS: Basophils Percent Auto 0.4 % (0-2); Eosinophils Absolute Auto 0.1 X10*3/uL (0.0-0.4); Eosinophils Percent Auto 1.9 % (0-4); Hematocrit 43.4 % (42.0-52.0); Hemoglobin 14.7 g/dl (14.0-18.0); Imm Gran Abs Auto 0.01 X10*3/uL (0.00-0.03); Imm Gran Pct Auto 0.2 % (0.0-0.4); Lymphocytes Absolute Auto 1.5 X10*3/uL (1.2-4.9); Lymphocytes Percent Auto 29.4 % (20-40); Mean Corpuscular HGB Conc 33.9 g/dl (31.0-36.0); Mean Corpuscular Hemoglobin 30.8 pg (27.0-33.0); Mean Platelet Volume 9.9 fL (9.4-12.4); Monocytes Absolute Auto 0.5 X10*3/uL (0.1-1.2); Monocytes Percent Auto 9.4 % (2-11); Neutrophils Absolute Auto 3.1 x10*3/uL (2.0-8.3); Neutrophils Percent Auto 58.7 % (45-73); Platelet Count 192 X10*3/uL (160-400); Red Blood Count 4.77 X10*6/uL (4.60-5.80); Red Cell Distribution Width 12.2 % (11.0-16.0); White Blood Count 5.2 X10*3/uL (4.8-10.8)
[2022-10-06] MEDS: Meclizine HCl 25 MG TABLET PO (12:00)
[2022-10-06] MEDS: 0.9 % Sodium Chloride 1,000 ML 999 ML IV (12:00)
[2022-10-06 12:25] LABS: B Type Natriuretic Peptide < 10 pg/mL (<100)
[2022-10-06 12:30] LABS: COVID-19 Test Negative (Negative); IDNOW Serial# 16C4AD1C
[2022-10-06 12:33] LABS: Alanine Aminotransferase 36 U/L (0-40); Albumin Level 4.3 g/dL (3.5-5.0); Alkaline Phosphatase 68 U/L (39-117); Anion Gap 10 (12-20); Aspartate Amino Transferase 18 U/L (5-37); Bilirubin Direct 0.7 mg/dL (0.0-0.5); Bilirubin Total 2.8 mg/dL (0.0-1.0); Blood Urea Nitrogen 11 mg/dL (9-16); Calcium 9.1 mg/dL (8.4-10.2); Carbon Dioxide 25 mmol/L (22-29); Chloride 109 mmol/L (96-108); Creatinine Clr Calc Pharmacy 88.1; Estimated Glomerular Filt Rate > 60; Glucose Random 107 mg/dL (60-115); Lipase 10 U/L (8-78); Potassium 4.1 mmol/L (3.3-5.1); Sodium 140 mmol/L (135-145); Total Protein 6.1 g/dL (6.5-8.0); Troponin-I High Sensitivity < 3.5 ng/L (<3.5-35.0)
[2022-10-06 14:32] LABS: Appearance Urine Clear; Color Urine Yellow; Glucose Urine UA Negative (Negative); Leukocyte Esterase Urine Negative (Negative); Nitrite Urine Negative (Negative); Urine Blood Negative (Negative); Urine Ketones Negative (Negative); Urine Protein Negative (Neg-Trace)
--- NOTE | 2022-10-06 15:14 | PC.NURSE ---
pt at MRI
[2022-10-06 15:59] VITALS: BP 142/84; PULSE 52; RESP 16; TEMP 36.8; O2SAT 98
== END 2022-10-06 16:27 | disposition home or self-care (01) ==
PROVIDERS: Emergency Medicine; Emergency Provider Student in an Organized Health Care Education/Training Program; PCP Family Medicine
DX: R42 Dizziness and giddiness (principal); R06.02 Shortness of breath; R51.9 Headache, unspecified; Z20.822 Contact with and (suspected) exposure to COVID-19; Z20.828 Contact with and (suspected) exposure to other viral communicable diseases; Z79.899 Other long term (current) drug therapy
CPT/HCPCS: 70450; 70551; 71045; 80048; 80076; 81003; 83690; 83880; 84484; 85025; 87635; 93005; 96360; 99284; 99285